=== PATIENT | female | born 1955 | race African-American/Black ===

== ENCOUNTER 2018-09-22 15:56 | Emergency (ER) | payer MEDICAID ==
[~2018-09-22] VITALS: Ht 154.9 cm; Wt 99.0 kg
[~2018-09-22 15:56] MED LIST: ALBU18HF2; AMLO10TA80; ASPI-1158; B50; BUPR-43; HYDR-3927; HYDR25TA; IBUP-1008; LISI1TAB13; METF-415; OMEP20CA10; POTA8TAB4; PROP20TA19; SIMV10TA6
[2018-09-22] MEDS ORDERED: IBUPROFEN 600MG TABLET PO ONE (20:15)
[2018-09-22] MEDS ORDERED: MORPHINE SULFATE 10 MG/ML CPJ IM ONE (21:30)
[2018-09-22 22:24] VITALS: BP 143/73
== END 2018-09-22 22:24 | disposition home or self-care (01) ==
LOC: ER 15:56
DX: M25.511 Pain in right shoulder (principal); M79.89 Other specified soft tissue disorders; I10 Essential (primary) hypertension; E11.9 Type 2 diabetes mellitus without complications; J45.909 Unspecified asthma, uncomplicated; E78.00 Pure hypercholesterolemia, unspecified; F14.10 Cocaine abuse, uncomplicated; F17.200 Nicotine dependence, unspecified, uncomplicated; Z87.440 Personal history of urinary (tract) infections; Z79.899 Other long term (current) drug therapy
CPT/HCPCS: 73030; 73060; 73110; 96372; 99284; J2270; Z7610; 93971; A4565

== ENCOUNTER 2020-06-25 14:58 | Emergency (ER) | payer MEDICAID ==
[~2020-06-25] VITALS: Ht 152.4 cm; Wt 90.0 kg
[~2020-06-25 14:58] MED LIST changes: -OMEP20CA10; +OMEP20CA14; -SIMV10TA6; +SIMV10TA97
[2020-06-25] MEDS ORDERED: CEFTRIAXONE 1 G PREMIX 50 ML IV ONE (16:15)
[2020-06-25 16:38] LABS: CHLORIDE 109 mEq/L (98-107)
[2020-06-25 16:43] LABS: BASOPHILS % 1.3 % (0.0-2.0); EOSINOPHILS % 2.1 % (0.0-5.0); HEMATOCRIT. 40.4 % (36.0-48.0); HEMOGLOBIN. 12.9 g/dL (12.0-16.0); LYMPHOCYTES % 24.8 % (20.0-50.0); MEAN CORPUSCULAR HEMOGLOBIN 28.8 pg (28.0-32.0); MEAN CORPUSCULAR VOLUME 90.1 fL (81.0-99.0); MEAN PLATELET VOLUME 8.5 fl (7.4-10.4); MONOCYTES % 7.5 % (2.0-8.0); NEUTROPHILS % 64.3 % (40.0-76.0); PLATELET 307 x1000/uL (130-400); RED BLOOD CELL COUNT 4.49 mill/uL (4.2-5.4); RED CELL DISTRIBUTION WIDTH 16.2 % (11.6-14.6)
[2020-06-25] MEDS: VANCOMYCIN 1 G PREMIX 200 ML IV SCH ×2 (17:13→18:14)
[2020-06-25] MEDS ORDERED: KETOROLAC 30MG/ML VIAL IM ONE (17:45)
[2020-06-25] MEDS ORDERED: ACETAMINOPHEN 325MG TABLET PO ONE (23:00)
[2020-06-26] MEDS ORDERED: KETOROLAC 60MG/2ML VIAL IM ONE (04:30)
[2020-06-26] MEDS ORDERED: CLINDAMYCIN 600 MG in DEXTROSE 5% WATER 50 ML IV ONE (04:45)
[2020-06-26] MEDS ORDERED: CEFTRIAXONE 1 G PREMIX 50 ML IV ONE (04:45)
[2020-06-26] MEDS ORDERED: CLINDAMYCIN 600MG PREMIX 600 ML IV SCH (06:00)
[2020-06-26] MEDS ORDERED: CLINDAMYCIN 600MG PREMIX 50 ML IV SCH (06:06)
[2020-06-26] MEDS ORDERED: CLONIDINE 0.2MG TABLET PO ONE (07:00)
[2020-06-26 07:22] VITALS: BP 171/85
== END 2020-06-26 07:22 | disposition home or self-care (01) ==
LOC: ER 14:58
DX: M65.842 Other synovitis and tenosynovitis, left hand (principal); L03.012 Cellulitis of left finger; E11.9 Type 2 diabetes mellitus without complications; I10 Essential (primary) hypertension; F14.10 Cocaine abuse, uncomplicated
CPT/HCPCS: 36415; 80048; 82962; 85025; 96365; 96367; 96372; 96375; 99285; J0696; J1885; J3370; J3490; Z7610; J7060

== ENCOUNTER 2020-10-29 09:09 | Emergency (ER) | payer MEDICAID ==
[~2020-10-29] VITALS: Ht 154.9 cm; Wt 97.0 kg
[~2020-10-29 09:09] MED LIST changes: -ASPI-1158; +ASPI-1406; -BUPR-43; +BUPR-46
[2020-10-29] MEDS ORDERED: KETOROLAC 30MG/ML VIAL IV STA (10:16)
[2020-10-29] MEDS ORDERED: SODIUM CHLORIDE 0.9% 1,000 ML IV ONE (10:30)
[2020-10-29 11:59] LABS: BASOPHILS % 0.5 % (0.0-2.0); EOSINOPHILS % 1.6 % (0.0-5.0); HEMATOCRIT. 35.8 % (36.0-48.0); HEMOGLOBIN. 11.3 g/dL (12.0-16.0); LYMPHOCYTES % 21.2 % (20.0-50.0); MEAN CORPUSCULAR HEMOGLOBIN 28.3 pg (28.0-32.0); MEAN CORPUSCULAR VOLUME 89.5 fL (81.0-99.0); MEAN PLATELET VOLUME 8.1 fl (7.4-10.4); MONOCYTES % 9.1 % (2.0-8.0); NEUTROPHILS % 67.6 % (40.0-76.0); PLATELET 290 x1000/uL (130-400); RED CELL DISTRIBUTION WIDTH 17.2 % (11.6-14.6)
[2020-10-29 12:06] LABS: CHLORIDE 109 mEq/L (98-107)
[2020-10-29 12:45] VITALS: BP 187/76
[2020-10-29] MEDS ORDERED: OMEP40CA12 MT (14:12)
[2020-10-29] MEDS ORDERED: MAGNESIUM/ALUMINUM HYDROXIDE/SIMETHICONE 30ML UDC PO ONE (14:15)
[2020-10-29] MEDS ORDERED: AMLODIPINE 10MG TABLET PO ONE (14:15)
[2020-10-29] MEDS ORDERED: AMLODIPINE 5MG TABLET PO ONE (14:30)
== END 2020-10-29 14:49 | disposition home or self-care (01) ==
LOC: ER 09:24
DX: R10.815 Periumbilic abdominal tenderness (principal); I16.0 Hypertensive urgency; R06.02 Shortness of breath; J45.909 Unspecified asthma, uncomplicated; E11.9 Type 2 diabetes mellitus without complications; E78.00 Pure hypercholesterolemia, unspecified; I10 Essential (primary) hypertension; Z87.09 Personal history of other diseases of the respiratory system; Z87.440 Personal history of urinary (tract) infections; Z79.899 Other long term (current) drug therapy
CPT/HCPCS: 36415; 71045; 74176; 80053; 83690; 83880; 84484; 85025; 93005; 96361; 96374; 99285; J1885; J7030; Z7610

== ENCOUNTER 2020-11-29 08:47 | Emergency (ER) | payer MEDICAID ==
[~2020-11-29] VITALS: Ht 154.9 cm; Wt 100.0 kg
[~2020-11-29 08:47] MED LIST changes: +HYDR-4346 MT; +OMEP40CA12 MT
[2020-11-29] MEDS ORDERED: KETOROLAC 60MG/2ML VIAL IM ONE (09:30)
[2020-11-29] MEDS ORDERED: OXYCODONE HCL/ACETAMINOPHEN 5/325MG TABLET PO ONE (10:15)
[2020-11-29] MEDS ORDERED: IBUP-2028 PO (12:14)
[2020-11-29 12:53] VITALS: BP 190/76
== END 2020-11-29 13:02 | disposition home or self-care (01) ==
LOC: ER 08:47
DX: M25.551 Pain in right hip (principal); M54.9 Dorsalgia, unspecified; M54.31 Sciatica, right side; E11.9 Type 2 diabetes mellitus without complications; I10 Essential (primary) hypertension
CPT/HCPCS: 72100; 73501; 73552; 93005; 96372; 99284; J1885

== ENCOUNTER 2021-03-14 22:45 | Emergency (ER) | payer MEDICARE, MEDICAID ==
[~2021-03-14] VITALS: Ht 152.4 cm; Wt 100.0 kg
[~2021-03-14 22:45] MED LIST changes: +IBUP-2028 PO
[2021-03-14 23:01] VITALS: BP 185/97
== END 2021-03-15 00:06 | disposition left against medical advice (07) ==
LOC: ER 22:45
DX: L26 Exfoliative dermatitis (principal); R10.2 Pelvic and perineal pain; J45.909 Unspecified asthma, uncomplicated; E11.9 Type 2 diabetes mellitus without complications; I10 Essential (primary) hypertension; M19.90 Unspecified osteoarthritis, unspecified site
CPT/HCPCS: 99281

== ENCOUNTER 2021-06-09 12:21 | Emergency (ER) | payer MEDICARE, MEDICAID ==
[~2021-06-09] VITALS: Ht 157.5 cm; Wt 101.0 kg
[~2021-06-09 12:21] MED LIST changes: -OMEP40CA12 MT; +OMEP40CA20 MT
[2021-06-09 13:39] LABS: EOSINOPHILS % 1.5 % (0.0-5.0); HEMATOCRIT. 34.7 % (36.0-48.0); LYMPHOCYTES % 18.6 % (20.0-50.0); MEAN CORPUSCULAR HEMOGLOBIN 28.3 pg (28.0-32.0); MEAN CORPUSCULAR VOLUME 88.9 fL (81.0-99.0); NEUTROPHILS % 69.9 % (40.0-76.0); PLATELET 352 x1000/uL (130-400); RED CELL DISTRIBUTION WIDTH 19.8 % (11.6-14.6)
[2021-06-09 13:53] LABS: CHLORIDE 106 mEq/L (98-107)
[2021-06-09 15:45] VITALS: BP 162/72
[2021-06-10] MEDS ORDERED: GLIP10TA10 MT (21:53)
[2021-06-10] MEDS ORDERED: BECL10.62 INH (21:53)
[2021-06-10] MEDS ORDERED: AMOX1TAB16 MT (21:53)
[2021-06-10] MEDS ORDERED: BENZ1TAB7 MT ×2 (23:26→23:29)
[2021-06-10] MEDS ORDERED: HAL5 MT ×2 (23:26→23:29)
== END 2021-06-09 15:47 | disposition home or self-care (01) ==
LOC: ER 12:21
DX: R06.89 Other abnormalities of breathing (principal); R06.00 Dyspnea, unspecified; I10 Essential (primary) hypertension; E11.9 Type 2 diabetes mellitus without complications; M19.90 Unspecified osteoarthritis, unspecified site; Z79.82 Long term (current) use of aspirin
CPT/HCPCS: 36415; 71045; 80053; 83880; 84484; 85025; 93005; 99285

== ENCOUNTER 2021-06-09 21:05 | Inpatient (IN) | payer MEDICARE, MEDICAID ==
[~2021-06-09] VITALS: Ht 152.4 cm; Wt 99.5 kg
[2021-06-10 01:01] LABS: CLARITY URINE CLEAR (CLEAR); COLOR URINE YELLOW (YELLOW); KETONES URINE NEGATIVE (NEGATIVE); LEUKOCYTE ESTERASE URINE NEGATIVE (NEGATIVE); NITRITE URINE NEGATIVE (NEGATIVE); OCCULT BLOOD URINE NEGATIVE (NEGATIVE); PROTEIN URINE 3+ (NEGATIVE); SPECIFIC GRAVITY URINE 1.021 (1.005-1.030); UROBILINOGEN URINE 0.2 E.U./dL (0.2-1.0)
[2021-06-10] MEDS ORDERED: ONDANSETRON HCL 4MG/2ML INJ IV STA (01:01)
[2021-06-10] MEDS ORDERED: MORPHINE SULFATE 4 MG/ML CPJ (NOT FOR IM USE) IV STA (01:01)
[2021-06-10] MEDS ORDERED: SODIUM CHLORIDE 0.9% 1,000 ML IV ONE (01:15)
[2021-06-10 01:45] LABS: BASOPHILS % 0.4 % (0.0-2.0); EOSINOPHILS % 2.2 % (0.0-5.0); HEMATOCRIT. 33.5 % (36.0-48.0); HEMOGLOBIN. 10.9 g/dL (12.0-16.0); LYMPHOCYTES % 25.7 % (20.0-50.0); MEAN CORPUSCULAR HEMOGLOBIN 28.8 pg (28.0-32.0); MEAN CORPUSCULAR VOLUME 88.4 fL (81.0-99.0); MONOCYTES % 9.8 % (2.0-8.0); NEUTROPHILS % 61.9 % (40.0-76.0); PLATELET 344 x1000/uL (130-400); RED BLOOD CELL COUNT 3.79 mill/uL (4.2-5.4); RED CELL DISTRIBUTION WIDTH 19.2 % (11.6-14.6)
[2021-06-10 01:50] LABS: CHLORIDE 108 mEq/L (98-107)
[2021-06-10] MEDS ORDERED: ASPIRIN 81MG TABLET PO ONE (03:00)
[2021-06-10] MEDS ORDERED: NITROGLYCERIN OINT 1GM/INCH UDPKT TD ONE (03:00)
[2021-06-10] MEDS ORDERED: FUROSEMIDE 40MG/4ML VIAL IV ONE (03:00)
[2021-06-10] MEDS ORDERED: IOHEXOL-300 100 ML BOTTLE ONE (05:34)
[2021-06-10] MEDS ORDERED: ACETAMINOPHEN 325MG TABLET PO PRN (08:15)
[2021-06-10] MEDS ORDERED: DEXTROSE 50% WATER 50ML SYRINGE IV PRN (08:15)
[2021-06-10] MEDS ORDERED: IPRATROPIUM/ALBUTEROL 0.5-3(2.5)MG/3ML NEB HHN PRN (08:15)
[2021-06-10] MEDS ORDERED: ONDANSETRON 4MG/5ML UDC PO NR (08:58)
[2021-06-10] MEDS: BLOOD SUGAR DIAGNOSTIC STRIP TEST SCH ×3 (09:11→21:19)
[2021-06-10] MEDS: INSULIN LISPRO 100 UNITS/ML SUBCUT SCH ×3 (12:00→21:41)
[2021-06-10 15:04] LABS: *AMPHETAMINES SCREEN URINE NEGATIVE (NEGATIVE); *BARBITURATES SCREEN URINE NEGATIVE (NEGATIVE); *BENZODIAZEPINES SCREEN URINE NEGATIVE (NEGATIVE); *COCAINE SCREEN URINE NEGATIVE (NEGATIVE)
[2021-06-10 15:05] LABS: METHADONE URINE SCREEN NEGATIVE (NEGATIVE); OPIATES URINE SCREEN NEGATIVE (NEGATIVE)
[2021-06-10 15:06] LABS: CANNABINOID URINE SCREEN NEGATIVE (NEGATIVE); PHENCYCLIDINE URINE SCREEN NEGATIVE (NEGATIVE)
[2021-06-10 20:35] VITALS: BP 162/90
[2021-06-10] MEDS: CLONIDINE 0.1MG TABLET PO PRN (21:39)
[2021-06-10] MEDS ORDERED: BECL10.62 INH (21:53)
[2021-06-10] MEDS ORDERED: GLIP10TA10 MT (21:53)
[2021-06-10] MEDS ORDERED: AMOX1TAB16 MT (21:53)
[2021-06-10] MEDS ORDERED: HAL5 MT ×2 (23:26→23:29)
[2021-06-10] MEDS ORDERED: BENZ1TAB7 MT ×2 (23:26→23:29)
[2021-06-10] MEDS ORDERED: HYDROCODONE/ACETAMINOPHEN 5/325MG TABLET PO PRN (23:45)
[2021-06-10] MEDS ORDERED: NALOXONE HCL 0.4MG/ML VIAL IV PRN (23:45)
[2021-06-11 00:50] VITALS: BP 161/68
[2021-06-11] MEDS ORDERED: *PATIENT'S OWN MEDICATION STORAGE XX SCH (03:30)
[2021-06-11 04:00] VITALS: BP 122/53
[2021-06-11] MEDS: BLOOD SUGAR DIAGNOSTIC STRIP TEST SCH ×2 (06:17→12:10)
[2021-06-11 06:36] LABS: CHLORIDE 110 mEq/L (98-107)
[2021-06-11 06:47] LABS: BASOPHILS % 0.6 % (0.0-2.0); EOSINOPHILS % 1.6 % (0.0-5.0); HEMATOCRIT. 33.4 % (36.0-48.0); HEMOGLOBIN. 10.5 g/dL (12.0-16.0); LDL CHOLESTEROL 67 mg/dL (5-100); LYMPHOCYTES % 24.6 % (20.0-50.0); MEAN CORPUSCULAR HEMOGLOBIN 28.2 pg (28.0-32.0); MEAN CORPUSCULAR VOLUME 89.5 fL (81.0-99.0); MEAN PLATELET VOLUME 8.3 fl (7.4-10.4); MONOCYTES % 10.2 % (2.0-8.0); PLATELET 327 x1000/uL (130-400); RED BLOOD CELL COUNT 3.74 mill/uL (4.2-5.4); RED CELL DISTRIBUTION WIDTH 19.9 % (11.6-14.6)
[2021-06-11 06:48] LABS: HDL CHOLESTEROL 50 mg/dL (40-59)
[2021-06-11] MEDS: INSULIN LISPRO 100 UNITS/ML SUBCUT SCH ×2 (07:01→12:10)
[2021-06-11] MEDS ORDERED: OMEPRAZOLE 20MG CAPSULE EXTENDED RELEASE PO SCH (07:10)
[2021-06-11] MEDS ORDERED: METFORMIN HCL 500MG TABLET PO SCH (07:40)
[2021-06-11 08:00] VITALS: BP 192/83
[2021-06-11] MEDS: CLONIDINE 0.1MG TABLET PO PRN (08:48)
[2021-06-11] MEDS ORDERED: BUDESONIDE 0.5MG/2ML NEB HHN SCH (09:00)
[2021-06-11] MEDS ORDERED: GLIPIZIDE 10MG TABLET PO SCH (09:00)
[2021-06-11] MEDS ORDERED: ASPIRIN 81MG EC TABLET PO SCH (09:00)
[2021-06-11] MEDS ORDERED: AMLODIPINE 10MG TABLET PO SCH (09:00)
[2021-06-11 12:00] VITALS: BP 137/73
[2021-06-11 14:35] VITALS: BP 118/57
[2021-06-11] MEDS ORDERED: ATORVASTATIN CALCIUM 10MG TABLET PO SCH (21:00)
[2021-06-12] MEDS ORDERED: ENOXAPARIN 30MG/0.3ML SYR SUBCUT SCH
== END 2021-06-11 15:27 | disposition home or self-care (01) | DRG 199 ==
LOC: ER 21:05 → MICUSO 06-10 02:48 → 8WST 06-10 19:46
PROVIDERS: ADMIT Internal Medicine; ATTEND Internal Medicine
DX: I16.0 Hypertensive urgency (principal); D64.9 Anemia, unspecified; E11.9 Type 2 diabetes mellitus without complications; E66.9 Obesity, unspecified; F17.210 Nicotine dependence, cigarettes, uncomplicated; J45.909 Unspecified asthma, uncomplicated; I10 Essential (primary) hypertension; K80.20 Calculus of gallbladder without cholecystitis without obstruction; R49.0 Dysphonia; M54.2 Cervicalgia; Z20.822 Contact with and (suspected) exposure to COVID-19; Z79.1 Long term (current) use of non-steroidal anti-inflammatories (NSAID); Z79.899 Other long term (current) drug therapy; Z71.6 Tobacco abuse counseling; Z68.41 Body mass index [BMI] 40.0-44.9, adult
CPT/HCPCS: 36415; 70491; 71045; 74176; 80048; 80053; 80061; 80305; 81003; 82962; 83036; 83880; 84484; 85025; 85379; 87426; 93005; 93970; 94640; 97162; 99285; J1815; J1940; J2270; J2405; J7030; J7626; Q9967

== ENCOUNTER 2021-06-28 22:13 | Emergency (ER) | payer MEDICARE, MEDICAID ==
[~2021-06-28] VITALS: Ht 160 cm; Wt 100.0 kg
[~2021-06-28 22:13] MED LIST changes: +BECL10.62 INH; +BENZ1TAB7 MT; +GLIP10TA10 MT; +HAL5 MT
[2021-06-28] MEDS: FUROSEMIDE 40MG/4ML VIAL IVP ONE (23:45)
[2021-06-28 23:47] LABS: BASOPHILS % 0.7 % (0.0-2.0); EOSINOPHILS % 2.6 % (0.0-5.0); HEMATOCRIT. 33.2 % (36.0-48.0); HEMOGLOBIN. 10.4 g/dL (12.0-16.0); LYMPHOCYTES % 20.7 % (20.0-50.0); MEAN CORPUSCULAR HEMOGLOBIN 27.6 pg (28.0-32.0); MEAN PLATELET VOLUME 8.1 fl (7.4-10.4); MONOCYTES % 7.5 % (2.0-8.0); NEUTROPHILS % 68.5 % (40.0-76.0); PLATELET 393 x1000/uL (130-400); RED BLOOD CELL COUNT 3.77 mill/uL (4.2-5.4); RED CELL DISTRIBUTION WIDTH 18.3 % (11.6-14.6)
[2021-06-29 00:02] LABS: CHLORIDE 108 mEq/L (98-107)
[2021-06-29] MEDS ORDERED: SODIUM CHLORIDE 0.9% 500 ML IV NR (00:30)
[2021-06-29] MEDS: KETOROLAC 15MG/ML VIAL IV NR (00:55)
[2021-06-29 02:00] VITALS: BP 139/91
== END 2021-06-29 02:18 | disposition home or self-care (01) ==
LOC: ER 22:13
DX: K80.20 Calculus of gallbladder without cholecystitis without obstruction (principal); J06.9 Acute upper respiratory infection, unspecified; Z20.822 Contact with and (suspected) exposure to COVID-19; Z79.899 Other long term (current) drug therapy; Z79.82 Long term (current) use of aspirin; Z98.890 Other specified postprocedural states
CPT/HCPCS: 36415; 71045; 74176; 80053; 83605; 83880; 84145; 84484; 85025; 87040; 87426; 87804; 93005; 96374; 96375; 99285; J1885; J1940